=== PATIENT | female | born 2000 | race Two or more races ===

== ENCOUNTER 2019-08-27 13:27 | Emergency (ER) | payer MEDICAID ==
[~2019-08-27] VITALS: Ht 162.6 cm; Wt 54.7 kg
[2019-08-27 13:34] VITALS: BP 116/99
[2019-08-27 14:43] LABS: RAPID INFLUENZA A POSITIVE (Negative); RAPID INFLUENZA B Negative (Negative)
--- NOTE | 2019-08-27 15:07 | NUR ---
REPORT TO [facility].
== END 2019-08-27 15:20 | disposition home or self-care (01) ==
LOC: ED 15:19
DX: J10.1 Influenza due to other identified influenza virus with other respiratory manifestations (principal); R51 Headache; M79.10 Myalgia, unspecified site
CPT/HCPCS: 71046; 87400; 99284